=== PATIENT | female | born 1985 | race Caucasian/White ===

== ENCOUNTER 2017-05-06 07:52 | Emergency (ER) | payer OTHER ==
[~2017-05-06] VITALS: Ht 170.2 cm; Wt 139.0 kg
[~2017-05-06 07:52] MED LIST: AMOXICILLIN875 MG OR; BACTRIM DS1 TAB PO; CIPRO500 MG OR; FLOVENT HFA44 MCG IN; FLUOXETINE20 MG OR; IPRATROPIUM BROMIDE IN; KEFLEX500 MG OR; KEFLEX500 MG PO; LORTAB 5 OR; LORTAB5 PO; MEDDOSEPAK OR; MEDDOSEPAK PO; MULTIVITAMIN OR; NAPROSYN500 MG PO; NO; NO MEDS; PENICILLN VK500 MG PO; PHENTERMINE37.5 MG OR; PROMETHAZINE25 MG OR; ROBITUSSIN AC10 ML OR; SYMBICORT1 AE1 IN; ULTRAM50 M1 OR; ULTRAM50 MG OR; VENTOLIN HFA IN; ZITHROMAX250 MG PO
[2017-05-06] MEDS ORDERED: PROAIR HFA108 MCG/AC IN (09:05)
[2017-05-06 09:15] LABS: URINE BILIRUBIN - DIPSTICK NEGATIVE (NEGATIVE); URINE BLOOD DIPSTICK NEGATIVE (NEGATIVE); URINE CLARITY CLEAR; URINE COLOR YELLOW; URINE GLUCOSE - DIPSTICK NEGATIVE (NEGATIVE); URINE KETONE NEGATIVE (NEGATIVE); URINE NITRITE - DIPSTICK NEGATIVE (Negative); URINE PH 5.5 (4.5-8.0); URINE PROTEIN - DIPSTICK NEGATIVE (NEG-TRACE); URINE SPECIFIC GRAVITY <=1.005; URINE UROBILINOGEN - DIPSTICK 0.2 E.U./dL (0.2)
[2017-05-06 09:21] LABS: URINE LEUK ESTERASE TRACE (NEGATIVE)
[2017-05-06] MEDS ORDERED: FIORICET PO (10:06)
[2017-05-06 10:25] VITALS: BP 135/69
== END 2017-05-06 10:30 | disposition home or self-care (01) | DRG 103 ==
LOC: ED 07:52
PROVIDERS: Emergency Medicine
DX: G43.909 Migraine, unspecified, not intractable, without status migrainosus (principal); R11.0 Nausea